=== PATIENT | female | born 1965 | race Caucasian/White ===

== ENCOUNTER 2020-01-14 13:37 | Emergency (ER) | payer BC, SELFPAY ==
--- NOTE | 2020-01-14 13:46 | ED.SKABFB ---
HPI - Skin/Abscess/Foreign Bdy General Chief complaint: Skin/Abscess/Foreign Body Stated complaint: rash on full body/itchiness Time Seen by Provider: 01/14/20 13:46 Source: patient and RN notes reviewed History of Present Illness HPI narrative: Patient is a 54-year-old female who presents the urgent care with complaints of itchy rash, possible scabies. States she first noticed the areas last Wednesday. Patient states that she noticed the itchy areas originated on the right foot and is now on the right ankle, upper back and bilateral arms. Patient states she also has small areas around the waistline. Patient has not used anything [id number] for her itchiness. Denies any other acute complaints. No acute distress noted. Patient read the plan of care. Related Data Home Medications Medication Instructions Recorded Confirmed benazepril-hydrochlorothiazide 1 tablet PO DAILY 01/14/20 01/14/20 Allergies Allergy/AdvReac Type Severity Reaction Status Date / Time latex Allergy Intermediate Verified 08/07/15 15:48 Penicillins Allergy Intermediate Itching Verified 08/07/15 15:48 Review of Systems Review of Systems: Narrative: CONSTITUTIONAL: Denies fever, chills, or sweats. EYES: Denies visual changes, redness, or discharge. ENT: Denies rhinorrhea, congestion, sore throat, or otalgia. CARDIOVASCULAR: Denies chest pain, palpitations, or edema. RESPIRATORY: Denies cough or dyspnea. GASTROINTESTINAL: Denies abdominal pain, nausea, vomiting, or diarrhea. GENITOURINARY: Denies dysuria or hematuria. SKIN: Reports of itchy rash to bilateral arms, upper back, waistline and right ankle MUSCULOSKELETAL: Denies back pain, joint pain, or myalgia. NEUROLOGIC: Denies headache, numbness, or weakness. All other systems reviewed are negative, except as documented in HPI. PMFSH Comments At the time of my signature, I reviewed and agree with the nursing past medical, surgical, social, and family history. There is no relevant family history pertinent to the patient complaint. Exam Narrative: Exam Narrative: GENERAL: This is a well-nourished, well-developed patient, in no apparent distress. HEAD: normocephalic, atraumatic. EYES: PERRL. Sclera clear/white. Vision is grossly intact. EARS: External ears normal NOSE: External nose normal with no obvious nasal discharge, nares without redness, no rhinorrhea. THROAT: Mucous membranes moist NECK: Neck supple SKIN: No obvious tracking or burrowing noted between the fingers, wrist, around the waistline. Erythemic dermatitis noted to the upper back, right waist, bilateral arms and right ankle NEURO: awake, alert, and oriented to person, place and time. There were no obvious focal neurologic abnormalities. EXTREMITIES: No clubbing, cyanosis, or edema. Course Vital Signs Vital signs: Vital Signs Temperature 97.7 F 01/14/20 13:47 Pulse Rate 76 01/14/20 13:47 Respiratory Rate 20 01/14/20 13:47 Blood Pressure 156/80 H 01/14/20 13:47 Pulse Oximetry 97 01/14/20 13:47 Temperature 97.7 F 01/14/20 13:47 Pulse Rate 76 01/14/20 13:47 Respiratory Rate 01/14/20 13:47 Blood Pressure 156/80 H 01/14/20 13:47 Pulse Oximetry 97 01/14/20 13:47 Reviewed?patient is informed that they may have pre-hypertension or hypertension based on a blood pressure reading in the department. I recommend the patient call the primary care provider listed on their discharge instructions or a physician of their choice this week to arrange follow-up for further evaluation of possible pre-hypertension or hypertension. MDM - Skin/Abscess/Foreign Bdy MDM Narrative Medical decision making narrative: Spoke to the patient regarding dermatitis versus scabies. Areas do not appear to be scabies. Advised the patient to complete steroid regimen as prescribed. May use Claritin or Zyrtec [id number] as needed. Use prescription cream to the areas as directed. If you develop worsening itchiness, track-like annemarie
[2020-01-14 13:47] VITALS: BP 156/80; PULSE 76; RESP 20; TEMP 36.5; O2SAT 97
== END 2020-01-14 14:00 | disposition home or self-care (01) ==
PROVIDERS: Emergency Provider Nurse Practitioner Family
DX: L25.9 Unspecified contact dermatitis, unspecified cause (principal); M50.30 Other cervical disc degeneration, unspecified cervical region
CPT/HCPCS: 99203; G0463

== ENCOUNTER 2020-04-08 18:37 | Emergency (ER) | payer BC, SELFPAY ==
--- NOTE | 2020-04-08 18:40 | ED.GENADULT ---
HPI - General Adult General Chief complaint: Upper Respiratory Infection Stated complaint: sore throat and ear pain Time Seen by Provider: 04/08/20 18:40 Source: patient Mode of arrival: ambulatory Limitations: no limitations History of Present Illness HPI narrative: 54-year-old female patient [facility] with complaints of a sore throat for the past week off and on and recently bilateral ear pain. Patient denies taking any medication for her symptoms. Denies any fevers, runny nose or coughing. Denies any chest pain or shortness of breath. Denies any abdominal pain, nausea, vomiting or diarrhea. Patient denies being around anybody with COVID that she is aware of but states that she does work with the public often at her job. Related Data Home Medications Medication Instructions Recorded Confirmed benazepril-hydrochlorothiazide 1 tablet PO DAILY 01/14/20 01/14/20 Allergies Allergy/AdvReac Type Severity Reaction Status Date / Time latex Allergy Intermediate Hives Verified 04/08/20 18:55 Penicillins Allergy Intermediate Itching Verified 04/08/20 18:55 Review of Systems Review of Systems: Narrative: CONSTITUTIONAL: Denies fever, chills, or sweats. EYES: Denies visual changes, redness, or discharge. ENT: Denies rhinorrhea, congestion, positive sore throat, bilateral otalgia. CARDIOVASCULAR: Denies chest pain, palpitations, or edema. RESPIRATORY: Denies cough or dyspnea. GASTROINTESTINAL: Denies abdominal pain, nausea, vomiting, or diarrhea. GENITOURINARY: Denies dysuria or hematuria. SKIN: Denies rash or itching. MUSCULOSKELETAL: Denies back pain, joint pain, or myalgia. NEUROLOGIC: Denies headache, numbness, or weakness. PSYCHIATRIC: Denies anxiety or depression. PMFSH Comments At the time of my signature I agree with nursing past medical history, surgical, social, and family history. There is no relevant family history pertinent to the presenting complaint. Exam Narrative: Exam Narrative: GENERAL: Well-appearing, well-nourished, and in no acute distress. HEAD: Normocephalic, atraumatic. EYES: PERRLA and EOMI. ENT: Nares clear, no rhinorrhea or epistaxis. Mucous membranes moist. Posterior pharynx with no erythema, tonsillar margin, exudates or lesions present. Bilateral TMs are clear with no erythema foreign bodies in the canal. NECK: Supple. No lymphadenopathy CHEST: Clear to auscultation. No respiratory distress. HEART: Regular rate and rhythm. No murmur heard. Normal peripheral pulses. ABDOMEN: Soft, nontender, nondistended, normal active bowel sounds. EXTREMITIES: Normal range of motion. No edema. SKIN: Warm, dry, no rash. NEURO: No focal deficits. Alert and oriented x3. Course Vital Signs Vital signs: Vital Signs Temperature 36.6 C 04/08/20 18:44 Pulse Rate 63 04/08/20 18:44 Respiratory Rate 16 04/08/20 18:44 Blood Pressure 153/71 H 04/08/20 18:44 Pulse Oximetry 98 04/08/20 18:44 Temperature 36.6 C 04/08/20 18:44 Pulse Rate 63 04/08/20 18:44 Respiratory Rate 16 04/08/20 18:44 Blood Pressure 153/71 H 04/08/20 18:44 Pulse Oximetry 98 04/08/20 18:44 Vital signs reviewed. Medical Decision Making Differential Diagnosis Differential Diagnosis: Differential diagnosis: Otitis media, otitis externa, perforated TM, infection of the outer ear, foreign body or cerumen impaction, ruptured TM, acute mastoiditis, ligament otitis externa, dehydration, pneumonia, sepsis, dental or intraoral infection, TMJ dysfunction viral pharyngitis, pharyngitis, group A strep, infectious mononucleosis, gonococcal pharyngitis, exudative pharyngitis, oral candidiasis. Chronic allergies, postnasal drip, GERD, abscess formation, but glottitis, retropharyngeal abscess formation, or airway obstruction. Discussed with patient that her bedside strep test today is negative. Discussed with patient that this could be also sinus drainage that is causing her symptoms and I would recommend trying to
[2020-04-08 18:44] VITALS: BP 153/71; PULSE 63; RESP 16; TEMP 36.6; O2SAT 98
== END 2020-04-08 19:19 | disposition home or self-care (01) ==
PROVIDERS: Emergency Provider Nurse Practitioner Family
DX: Z20.828 Contact with and (suspected) exposure to other viral communicable diseases (principal); J02.9 Acute pharyngitis, unspecified; I10 Essential (primary) hypertension; I34.1 Nonrheumatic mitral (valve) prolapse; F41.9 Anxiety disorder, unspecified
CPT/HCPCS: 87081; 87880; 99213; G0463